=== PATIENT | male | born 1950 | race Caucasian/White ===

== ENCOUNTER → 2019-05-31 | Outpatient (REF) | payer OTHER | LOC: M LAB LCGH 12:51 | PROVIDERS: ATTEND Surgery | DX: Z80.0 Family history of malignant neoplasm of digestive organs (principal) ==

== ENCOUNTER → 2023-12-26 | Outpatient (REF) | payer MEDICARE, OTHER | LOC: M LABSMT 14:08 | PROVIDERS: ATTEND Urology | DX: N52.9 Male erectile dysfunction, unspecified (principal) ==